=== PATIENT | female | born 1965 | race African-American/Black ===

== ENCOUNTER 2019-04-08 18:44 | Emergency (ER) | payer OTHER ==
[~2019-04-08] VITALS: Ht 170.2 cm; Wt 81.4 kg
[~2019-04-08 18:44] MED LIST: [UNRECOGNIZED DRUG - CODE]; [UNRECOGNIZED DRUG - CODE]
[2019-04-08 22:34] VITALS: BP 142/88
== END 2019-04-08 22:47 | disposition home or self-care (01) ==
LOC: EMS 18:45
DX: S83.91XA Sprain of unspecified site of right knee, initial encounter (principal); M17.11 Unilateral primary osteoarthritis, right knee; F17.210 Nicotine dependence, cigarettes, uncomplicated; W10.9XXA Fall (on) (from) unspecified stairs and steps, initial encounter; Y93.89 Activity, other specified; Y92.89 Other specified places as the place of occurrence of the external cause; Y99.8 Other external cause status
CPT/HCPCS: 29505; 29530

== ENCOUNTER 2019-05-13 12:51 | Emergency (ER) | payer OTHER ==
[~2019-05-13] VITALS: Ht 167.6 cm; Wt 79.5 kg
[2019-05-13 13:28] LABS: BASOPHILS % (AUTO) 1.6 % (0.0-2.0); HEMATOCRIT 28.8 % (36-46); HEMOGLOBIN 8.6 g/dL (12.0-16.0); LYMPHOCYTES # (AUTO) 1.5 K/uL (1.0-4.8); LYMPHOCYTES % (AUTO) 18.8 % (22.0-44.0); MEAN CORPUSCULAR HEMOGLOBIN 17.6 pg (26.0-34.0); MEAN CORPUSCULAR HGB CONC 30.1 G/dL (31.0-37.0); MEAN CORPUSCULAR VOLUME 59 fL (80-100); MONOCYTES # (AUTO) 0.6 K/uL (0.1-1.0); NEUTROPHILS # (AUTO) 5.7 K/uL (1.8-7.7); NEUTROPHILS % (AUTO) 70.6 % (40.0-70.0); PLATELET COUNT (AUTO) 365 K/uL (150-450); RED BLOOD CELL COUNT(AUTO) 4.91 MIL/uL (4.00-5.20); RED CELL DISTRIBUTION WIDTH 25.2 % (11.5-14.5)
[2019-05-13 13:34] LABS: ANION GAP 11 mmol/L (8-16); CALCIUM, TOTAL 8.6 mg/dL (8.8-10.5); CARBON DIOXIDE 24 mmol/L (22-29); CHLORIDE 104 mmol/L (98-107); CREATININE 0.63 mg/dL (0.60-1.30); GLOMERULAR FILTR. RATE CALC > 60 mL/min (>60); GLUCOSE,RANDOM 87 mg/dL (70-110); POTASSIUM 3.5 mmol/L (3.5-5.1); SODIUM SERUM 139 mmol/L (136-145); UREA NITROGEN, BLOOD 8 mg/dL (7-18)
[2019-05-13 13:39] LABS: ALANINE AMINOTRANSFERASE 17 U/L (12-78); ALBUMIN 3.4 g/dL (3.4-5.0); ALKALINE PHOSPHATASE 95 U/L (46-116); ASPARTATE AMINOTRANSFERASE 16 U/L (15-37); BILIRUBIN,TOTAL 0.4 mg/dL (0.1-1.0); LIPASE 108 U/L (73-393); TOTAL PROTEIN, SERUM 7.7 g/dL (6.4-8.2)
[2019-05-13 13:48] LABS: PLATELET MORPHOLOGY COMMENT LARGE PLTS PRESENT
[2019-05-13] MEDS ORDERED: HYDROCODONE/ACETAMINOPHEN 5-325 MG TABLET PO ONE (14:00)
[2019-05-13 14:17] LABS: APPEARANCE,URINE CLEAR (CLEAR); BILIRUBIN,URINE NEGATIVE (NEGATIVE); GLUCOSE, URINE (UA) NEGATIVE (NEGATIVE); KETONES,URINE NEGATIVE (NEGATIVE); LEUKOCYTE ESTERASE ,URINE NEGATIVE (NEGATIVE); NITRATE,URINE NEGATIVE (NEGATIVE); OCCULT BLOOD,URINE LARGE (NEGATIVE); PH,URINE 5.5 (5.0-8.0); PROTEIN,URINE NEGATIVE (NEGATIVE)
[2019-05-13 14:31] LABS: BACTERIA,URINE None Seen /HPF (None Seen); RBC,URINE 0-2 /HPF (0-2); SQUAMOUS EPITHELIAL CELL,UR Few /LPF (None Seen); WBC,URINE None Seen /HPF (0-5)
[2019-05-13 16:06] VITALS: BP 159/102
== END 2019-05-13 16:40 | disposition home or self-care (01) ==
LOC: EMS 12:52
DX: N83.202 Unspecified ovarian cyst, left side (principal); N94.6 Dysmenorrhea, unspecified; F17.210 Nicotine dependence, cigarettes, uncomplicated
CPT/HCPCS: 76856; 93005

== ENCOUNTER 2020-05-27 20:41 | Emergency (ER) | payer OTHER ==
[~2020-05-27] VITALS: Ht 170.2 cm; Wt 86.4 kg
[2020-05-27] MEDS ORDERED: TRAM50TA2 PO (21:06)
[2020-05-28] MEDS: ACETAMINOPHEN 325 MG TABLET PO ONE (00:25)
[2020-05-28] MEDS: IBUPROFEN 400 MG TABLET PO ONE (00:25)
[2020-05-28 01:03] VITALS: BP 143/95
== END 2020-05-28 01:21 | disposition home or self-care (01) ==
LOC: EMS 20:41
DX: M25.551 Pain in right hip (principal); M25.552 Pain in left hip; F17.210 Nicotine dependence, cigarettes, uncomplicated; W01.0XXA Fall on same level from slipping, tripping and stumbling without subsequent striking against object, initial encounter; Y93.89 Activity, other specified; Y92.098 Other place in other non-institutional residence as the place of occurrence of the external cause; Y99.8 Other external cause status
CPT/HCPCS: 73502

== ENCOUNTER 2020-05-31 20:53 | Emergency (ER) | payer OTHER ==
[~2020-05-31] VITALS: Ht 170.2 cm; Wt 88.6 kg
[~2020-05-31 20:53] MED LIST changes: +TRAM50TA2 PO; -[UNRECOGNIZED DRUG - CODE]; -[UNRECOGNIZED DRUG - CODE]
[2020-05-31] MEDS ORDERED: KETOROLAC TROMETHAMINE 60 MG/2 ML VIAL IM ONE (23:15)
[2020-05-31] MEDS ORDERED: TraMADol HCL 50 MG TABLET PO ONE (23:15)
[2020-05-31] MEDS ORDERED: METHOCARBAMOL 750 MG TABLET PO ONE (23:15)
[2020-06-01 00:26] VITALS: BP 138/81
== END 2020-06-01 00:34 | disposition home or self-care (01) ==
LOC: EMS 20:53
DX: S83.91XA Sprain of unspecified site of right knee, initial encounter (principal); X58.XXXA Exposure to other specified factors, initial encounter; Y93.89 Activity, other specified; Y92.89 Other specified places as the place of occurrence of the external cause; Y99.8 Other external cause status
CPT/HCPCS: 96372; 99283; J1885

== ENCOUNTER 2021-09-15 13:20 | Emergency (ER) | payer OTHER ==
[~2021-09-15] VITALS: Ht 170.2 cm; Wt 77.3 kg
[2021-09-15] MEDS ORDERED: KETOROLAC TROMETHAMINE 30 MG/ML VIAL IM ONE (14:15)
[2021-09-15 15:15] VITALS: BP 117/71
[2021-09-15] MEDS ORDERED: ACETAMINOPHEN 500 MG TABLET PO ONE (15:15)
[2021-09-15 15:19] LABS: BASOPHILS % (AUTO) 0.4 % (0.0-2.0); EOSINOPHILS % (AUTO) 0 % (1.0-6.0); HEMATOCRIT 36.6 % (36-46); HEMOGLOBIN 11.7 g/dL (12.0-16.0); LYMPHOCYTES # (AUTO) 1.1 K/uL (1.0-4.8); LYMPHOCYTES % (AUTO) 6.6 % (22.0-44.0); MEAN CORPUSCULAR HGB CONC 31.9 G/dL (31.0-37.0); MEAN CORPUSCULAR VOLUME 66 fL (80-100); MONOCYTES # (AUTO) 1.3 K/uL (0.1-1.0); MONOCYTES % (AUTO) 7.5 % (2.0-9.0); NEUTROPHILS # (AUTO) 14.6 K/uL (1.8-7.7); PLATELET COUNT (AUTO) 264 K/uL (150-450); RED BLOOD CELL COUNT(AUTO) 5.58 MIL/uL (4.00-5.20); RED CELL DISTRIBUTION WIDTH 15.5 % (11.5-14.5)
[2021-09-15 15:23] LABS: NEUTROPHILS % (AUTO) 85.5 % (40.0-70.0)
[2021-09-15] MEDS ORDERED: NAPR-1025 PO (16:08)
== END 2021-09-15 16:30 | disposition home or self-care (01) ==
LOC: EMS 13:24
DX: N93.8 Other specified abnormal uterine and vaginal bleeding (principal); D25.9 Leiomyoma of uterus, unspecified; F17.210 Nicotine dependence, cigarettes, uncomplicated
CPT/HCPCS: 36415; 76856; 84702; 85025; 96372; 99284; J1885

== ENCOUNTER 2022-08-09 03:51 | Emergency (ER) | payer BC, OTHER ==
[~2022-08-09] VITALS: Ht 170.2 cm; Wt 96.0 kg
[~2022-08-09 03:51] MED LIST changes: +NAPR-1025 PO
[2022-08-09 04:28] LABS: COVID AG,FIA SOURCE NASAL SWAB
[2022-08-09 04:59] LABS: INFLUENZA TYPE A NEGATIVE FOR TYPE A (NEGATIVE); INFLUENZA TYPE B NEGATIVE FOR TYPE B (NEGATIVE)
[2022-08-09] MEDS ORDERED: AZIT250T9 PO (05:05)
[2022-08-09] MEDS ORDERED: BENZ-39 PO (05:06)
[2022-08-09 05:10] VITALS: BP 149/77
== END 2022-08-09 05:22 | disposition home or self-care (01) ==
LOC: EMS 03:53
DX: J40 Bronchitis, not specified as acute or chronic (principal); I10 Essential (primary) hypertension; G89.29 Other chronic pain; M25.519 Pain in unspecified shoulder; M54.2 Cervicalgia; F17.210 Nicotine dependence, cigarettes, uncomplicated; D25.9 Leiomyoma of uterus, unspecified; Z98.890 Other specified postprocedural states; Z20.822 Contact with and (suspected) exposure to COVID-19
CPT/HCPCS: 71046; 87804; 99284

== ENCOUNTER 2023-11-07 09:32 | Emergency (ER) | payer BC, OTHER ==
[~2023-11-07] VITALS: Ht 170.2 cm; Wt 86.4 kg
[~2023-11-07 09:32] MED LIST changes: +BENZ-39 PO
[2023-11-07 09:42] VITALS: TEMP 98.7
[2023-11-07] MEDS: IBUPROFEN 600 MG TABLET PO ONE (10:22)
[2023-11-07] MEDS: ACETAMINOPHEN 500 MG TABLET PO ONE (10:22)
[2023-11-07] MEDS: LIDOCAINE 5% TRANSDERMAL PATCH TD ONE (10:23)
[2023-11-07] MEDS ORDERED: ACET-3385 PO (10:38)
[2023-11-07] MEDS ORDERED: IBUP-1492 PO (10:38)
[2023-11-07 12:00] VITALS: BP 132/81; PULSE 68; RESP 18
== END 2023-11-07 12:34 | disposition home or self-care (01) ==
LOC: EMS 09:55
DX: S43.402A Unspecified sprain of left shoulder joint, initial encounter (principal); I10 Essential (primary) hypertension; F17.210 Nicotine dependence, cigarettes, uncomplicated; D25.9 Leiomyoma of uterus, unspecified; Z98.890 Other specified postprocedural states; V89.2XXA Person injured in unspecified motor-vehicle accident, traffic, initial encounter; Y93.89 Activity, other specified; Y92.89 Other specified places as the place of occurrence of the external cause; Y99.8 Other external cause status
CPT/HCPCS: 99283

== ENCOUNTER 2025-01-16 10:46 | Emergency (ER) | payer BC, MEDICAID, OTHER ==
[~2025-01-16] VITALS: Ht 170.2 cm; Wt 84.1 kg
[~2025-01-16 10:46] MED LIST changes: +ACET-3385 PO; -BENZ-39 PO; +IBUP-1492 PO; -NAPR-1025 PO; -TRAM50TA2 PO
[2025-01-16 10:48] VITALS: TEMP 98.5
[2025-01-16] MEDS ORDERED: AMLO5TAB66 PO (10:50)
[2025-01-16] MEDS ORDERED: OXYC-618 PO (10:50)
[2025-01-16] MEDS ORDERED: methocarbamoL 500 MG TABLET PO ONE (11:15)
[2025-01-16] MEDS ORDERED: KETOROLAC TROMETHAMINE 60 MG/2 ML VIAL IM ONE (11:15)
[2025-01-16 15:45] VITALS: BP 152/95; PULSE 77; RESP 18; O2SAT 100
[2025-01-16] MEDS ORDERED: CEPH-558 PO (16:07)
[2025-01-16] MEDS: PERTUSS(ACELL),DIPH,TET/PF 0.5 ML SYRINGE [ADULT] IM. ONE (16:47)
[2025-01-16] MEDS: CEPHALEXIN MONOHYDRATE 500 MG CAPSULE PO ONE (16:48)
== END 2025-01-16 16:49 | disposition home or self-care (01) ==
LOC: EMS 10:46
DX: S01.511A Laceration without foreign body of lip, initial encounter (principal); I10 Essential (primary) hypertension; F17.210 Nicotine dependence, cigarettes, uncomplicated; W10.8XXA Fall (on) (from) other stairs and steps, initial encounter; Y93.89 Activity, other specified; Y92.89 Other specified places as the place of occurrence of the external cause; Y99.8 Other external cause status
CPT/HCPCS: 12011; 99283

== ENCOUNTER 2025-01-20 11:53 | Emergency (ER) | payer MEDICAID ==
[~2025-01-20] VITALS: Ht 170.2 cm; Wt 81.8 kg
[~2025-01-20 11:53] MED LIST changes: -ACET-3385 PO; +AMLO5TAB66 PO; +CEPH-558 PO; -IBUP-1492 PO; +OXYC-618 PO
[2025-01-20 12:03] VITALS: TEMP 97.5
[2025-01-20 12:49] VITALS: BP 157/88; PULSE 81; RESP 18; O2SAT 97
== END 2025-01-20 12:51 | disposition home or self-care (01) ==
LOC: EMS 11:55
DX: S01.511D Laceration without foreign body of lip, subsequent encounter (principal); I10 Essential (primary) hypertension; G89.29 Other chronic pain; F17.210 Nicotine dependence, cigarettes, uncomplicated; Z98.890 Other specified postprocedural states; Z86.018 Personal history of other benign neoplasm; Z79.899 Other long term (current) drug therapy; W01.0XXD Fall on same level from slipping, tripping and stumbling without subsequent striking against object, subsequent encounter
CPT/HCPCS: 99281; Z7502